=== PATIENT | male | born 1960 | race Caucasian/White ===

== ENCOUNTER 2020-11-14 11:27 | Emergency (ER) | payer MEDICAID, SELFPAY ==
[2020-11-14 11:31] VITALS: BP 115/56; PULSE 51; RESP 17; TEMP 37.4; O2SAT 94; BMI 23.3
[2020-11-14 11:54] VITALS: BP 107/67; PULSE 100; RESP 28; O2SAT 96
--- NOTE | 2020-11-14 12:31 | RAD_ITS ---
STUDY: X-RAY CHEST REASON FOR EXAM: Male, 60 years old. COUGH, FEVER TECHNIQUE: Frontal and lateral views of the chest. COMPARISON: None. FINDINGS: Opacification of the lower right hemithorax. Findings are probably related to small to moderate pleural effusion and atelectasis or infiltrate. Mild atelectasis or infiltrate in the left lung base. Normal size heart. Normal mediastinum and aubrey. Normal visualized pulmonary arteries. Normal visualized aortic arch and descending thoracic aorta. Normal visualized thoracic spine. Normal visualized ribs, clavicles, and shoulders. There is no demonstrated abnormality of the visualized soft tissue structures of the upper abdomen. RAD/Chest 1 View (Portable) IMPRESSION: Prominent atelectasis or infiltrate with small to moderate pleural effusion on the right. Mild atelectasis or infiltrate in the left lung base. Electronically Signed: Raul Troy MD at 13:12 EST , Service support ,
--- NOTE | 2020-11-14 12:31 | EKG12_ITS ---
Test Reason : CP Blood Pressure : / mmHG Vent. Rate : 099 BPM Atrial Rate : 099 BPM P-R Int : 122 ms QRS Dur : 088 ms QT Int : 404 ms P-R-T Axes : 055 015 008 degrees QTc Int : 518 ms Sinus rhythm with frequent Premature ventricular complexes Prolonged QT Abnormal ECG Confirmed by EMMANUEL CASTILLO, ASIF ([id number]), publications editor GLYNN CLARKE ([id number]) on 11/17/2020 10:28:43 AM Referred By: FAUSTINA Confirmed By:ASIF BENITEZ MD
--- NOTE | 2020-11-14 12:33 | ED.DCSUM_ITS ---
History of Present Illness Chief Complaint: Chest Pain Informant: Patient Onset: Days Context: Gradual Onset Narrative: Patient is a 60-year-old male that denies any significant past medical history presenting with worsening chest and back pain as well as shortness of breath and cough. Patient states his symptoms started 5 days ago he was seen at [facility] emergency room last night. At that time he had blood work, CTA and a Covid test performed. Patient was diagnosed with pleural effusion of the right lung and concerns for malignancy as well as possible pneumonia. Patient have a leukocytosis of 15. His Covid test was negative. Patient has had 2 doses of Levaquin, one in the ER yesterday and another today. Patient was previously taking NSAIDs for his pain but they were not working so he stopped taking them. Last dose was about 2 days ago. His sister was concerned which is why he presented back to the emergency room today. Patient states the pain started in his right mid back and radiates up. It is worse with movement and with deep breathing. He has a cough productive of clear/white sputum. He did have a fever yesterday of 38.1 while in the emergency room. He was unaware of fevers prior to that. Pain now radiates to his right chest. Some associated nausea but no vomiting. Past Medical History - Allergies and Home Meds Allergies/Adverse Reactions: Allergies No Known Allergies Allergy (Verified 11/14/20 11:30) Primary Care Physician: Sincere Orosco MD [STAFF PHYSICIAN] - Virginia Galindo MD [STAFF PHYSICIAN] - Past Medical History: None Surgical History: noncontributory Smoking Status: Current every day smoker Review of Systems General: Reports: Fever, Malaise. Denies: Chills, Sweats Eyes: Denies: Visual changes - bilaterally, Diplopia ENT: Denies: Rhinorrhea, Sore throat Cardiovascular: Denies: Chest pain, Palpitations Respiratory: Reports: Dyspnea, Cough, Sputum, Dyspnea on exertion Gastrointestinal: Reports: Nausea. Denies: Abdominal pain, Vomiting, Diarrhea, Melena, Hematochezia Genitourinary: Denies: Dysuria, Hematuria, Frequency Musculoskeletal: Denies: Back pain, Extremity Pain Skin: Denies: Rash, Wounds Neurological: Denies: Headache, Weakness, Numbness Physical Exam Vital Signs/Narrative: Vital Signs Temp Pulse Resp BP Pulse Ox 11/14/20 11:54 100 28 H 107/67 96 11/14/20 11:31 99.3 F H 51 L 17 115/56 L 94 Inital Vital Signs reviewed: Yes General: Well nourished, Well developed, No Acute Distress Head: Normocephalic, Atraumatic Eyes: Perrl, EOMI ENT: No rhinorrhea, Dry mucous membranes Neck: Supple, Nontender Cardiovascular: Regular rhythm, No murmurs, Tachycardia Respiratory: No distress, Chest nontender, Decreased Air Movement - right middle and lower lung . Negative for: Rhonchi, Wheezing, Retractions Abdomen: Soft, Nontender, Nondistended, Normal bowel sounds Back: Nontender, Normal Inspection Extremities: Nontender, No edema Skin: Normal color, No rash Neurological: Alert, Oriented x3, Cranial nerves II-XII grossly intact, Normal Strength, Normal Sensation Psychological: Normal affect, Normal Mood Diagnostic/Tx/Re-eval Chest X-Ray - ED: 1 View, Read by ED Physician, Read by Radiologist, Right Infiltrate, Right Effusion Clinical Impression(s) from Imaging Studies Chest X-Ray 11/14/20 12:31 IMPRESSION: Prominent atelectasis or infiltrate with small to moderate pleural effusion on the right. Mild atelectasis or infiltrate in the left lung base. Electronically Signed: Raul Troy MD at 13:12 EST , Service support , Laboratory Data 11/14/20 11/14/20 11/14/20 13:05 13:05 13:05 WBC 15.2 H RBC 4.28 L Hgb 12.2 L Hct 37.1 L MCV 86.7 MCH 28.5 MCHC 32.9 RDW Std Deviation 39.9 RDW Coeff of Reij 12.5 Plt Count 684 H MPV 8.9 Immature Gran % (Auto) 0.600 Neut % (Auto) 83.3 H Lymph % (Auto) 7.6 L [place] % (Auto) 8.0 Eos % (Auto) 0.1 Baso % (Auto) 0.4 Absolute Neuts (auto) 12.6 H Absolute Lymphs (auto) 1.15 Nucleated RBC % 0 PT 16.4 H INR 1.4 APTT 37.5 H Sodium 136 Potassium 3.4 L Chloride 100 Carbon Dioxide 29.0 Anion Gap 7 BUN 11 Creatinine 0.85 Estim Creat Clear Calc 94.73 Est GFR (MDRD) Af Amer 119 Est GFR (MDRD) Non-Af 98 BUN/Creatinine Ratio 12.9 Glucose 98 Lactic Acid Calcium 8.6 Total Bilirubin 0.60 AST 7 L ALT 9 L Alkaline Phosphatase 100 Troponin I < 0.015 Total Protein 8.1 Albumin 2.4 L Globulin 5.7 H Albumin/Globulin Ratio 0.4 L 11/14/20 13:05 WBC RBC Hgb Hct MCV MCH MCHC RDW Std Deviation RDW Coeff of Reji Plt Count MPV Immature Gran % (Auto) Neut % (Auto) Lymph % (Auto) [place] % (Auto) Eos % (Auto) Baso % (Auto) Absolute Neuts (auto) Absolute Lymphs (auto) Nucleated RBC % PT INR APTT Sodium Potassium Chloride Carbon Dioxide Anion Gap BUN Creatinine Estim Creat Clear Calc Est GFR (MDRD) Af Amer Est GFR (MDRD) Non-Af BUN/Creatinine Ratio Glucose Lactic Acid 0.9 Calcium Total Bilirubin AST ALT Alkaline Phosphatase Troponin I Total Protein Albumin Globulin Albumin/Globulin Ratio - Rhythm Strip Rhythm Strip: Sinus Rhythm Rate: 99 Ectopy: PVC(s) - EKG Initial EKG Interpretation: Sinus Rhythm, - - Normal sinus rhythm rate of 99 Frequent PVCs QTc [address] segments Nonspecific T wave inversion in lead III - Medical Decision Making Patient evaluated for worsening pain in his back which radiates to his chest as well as shortness of breath. Patient was diagnosed with a lung mass as well as likely pneumonia yesterday at an outside ER. Results are reviewed. Patient had a CTA at that time which was also negative for PE. His Covid test was negative. A very thorough evaluation at that time. Patient is afebrile and has normal vital signs not hypoxic. He is hemodynamically stable in the emergency room. He does have a lot of PVCs on telemetry but I do not think this is the cause of his symptoms. Patient is already on Levaquin. I will recheck labs to make sure he does not have any worsening as well as a lactate to make sure does not have signs of sepsis. Severe sepsis or septic shock. Patient is treated with Toradol and Valium for his pain. I suspect his pain is a mixture of muscle spasm versus pleurisy. On reevaluation does have improvement of his symptoms. He is ambulated in the ER and his O2 saturation does not go below 93%. Patient is amenable to going home and to follow-up outpatient. He is given follow-up with pulmonology as well as a local primary care doctor. He is counseled that there is a chance he could get worse and if that does happen he should immediately return to the emergency room. Patient is counseled on signs and symptoms requiring return to the emergency room. Patient verbalizes agreement and understand this plan. Patient discharged home in stable and improved condition. ED Disposition - Plan for ED Patient: Disposition: Home or Assisted Living Diagnosis: Right lower lobe pneumonia, Pleural effusion, right, Mass of right lung Instructions: ED Chest Pain, Noncardiac, ED Pleural Effusion, ED Pneumonia (Adult) Prescriptions: cycloBENZAPRine HCl [Flexeril] 10 mg PO TID PRN #20 tab PRN Reason: Muscle Spasm Transmission Status: Received by [facility]30 Ibuprofen [Motrin] 600 mg PO Q6H PRN PRN #20 tab PRN Reason: Pain 1-10 Or Fever Transmission Status: Received by [facility]30 Referrals: Sincere Orosco MD [STAFF PHYSICIAN] - Virginia Galindo MD [STAFF PHYSICIAN] - Additional Instructions: You have been prescribed a muscle relaxant, Flexeril, as well as an anti- inflammatory, ibuprofen, to help with your pain. Continue take antibiotics. It does appear that you have pneumonia as well as a right lung mass that needs to be followed-up. You been referred to a lung specialist, Dr. Orosco for this. I also gave information for primary care doctor in the area. At this time you do not require hospitalization but please return the emergency room if you develop worsening pain, fevers or difficulty breathing.
[2020-11-14 13:13] VITALS: BP 105/72; PULSE 108; RESP 31; TEMP 37.3; O2SAT 96
[2020-11-14 13:15] VITALS: O2SAT 96
[2020-11-14] MEDS: diazePAM 5 MG Tablet PO (13:15)
[2020-11-14] MEDS: Ketorolac 15 MG/ML Vial IV (13:17)
[2020-11-14 13:23] LABS: Absolute Lymphocyte Count 1.15 X10^3/uL (0.83-4.51); Absolute Neutrophil Count 12.6 X10^3/uL (2.0-7.7); Basophil# 0.06 X10^3/uL; Basophil% 0.4 % (0-1); Eosinophil# 0.01 X10^3/uL; Eosinophils% 0.1 % (0-5); Hematocrit 37.1 % (40-54); Hemoglobin 12.2 g/dL (13.0-16.5); Lymphocyte # 1.15 X10^3/ul (4.0); Lymphocyte % 7.6 % (19-41); Mean Corp Hgb Conc 32.9 g/dL (32-36); Mean Corpuscular Hgb 28.5 pg (27.0-32.0); Mean Corpuscular Volume 86.7 fL (80-94); Mean Platelet Vol. 8.9 fl (6.2-12.0); Monocyte# 1.22 X10^3/uL; NRBC Flagged by Analyzer 0 % (0-5); Neutrophil # 12.63 X10^3/uL (2.7-7.7); Neutrophil % 83.3 % (47-70); Platelet Count 684 K/mm3 (150-450); RBC Distribution Width CV 12.5 % (11.6-14.6); RBC Distribution Width SD 39.9 fl (35.1-43.9); Red Blood Count 4.28 M/mm3 (4.6-6.2); White Blood Count 15.2 K/mm3 (4.4-11.0)
[2020-11-14 13:39] LABS: ALB/GLOB Ratio 0.4 RATIO (0.9-2.4); AST(SGOT) 7 U/L (15-37); Alanine Aminotransfer ALT/SGPT 9 U/L (16-61); Albumin, Serum 2.4 g/dL (3.2-5.0); Alkaline Phosphatase 100 U/L (45-117); Anion Gap 7 (5-15); BUN 11 mg/dL (7-18); BUN/Creat Ratio 12.9 RATIO (10-20); Calcium,Total 8.6 mg/dL (8.5-10.1); Chloride 100 mmol/L (98-107); Creatinine, Serum 0.85 mg/dL (0.70-1.30); EST Glomerular Filtration Rate 98 mL/min (>60); Est Glom Filt Rate - Afr Amer 119 mL/min (>60); Estimated Creatinine Clearance 94.73 ml/min; Globulin 5.7 g/dL (2.2-4.2); Glucose 98 mg/dL (74-106); Potassium 3.4 mmol/L (3.5-5.1); Protein, Total 8.1 g/dL (6.4-8.2); Sodium Level 136 mmol/L (136-145)
[2020-11-14 13:44] LABS: International Normalized Ratio 1.4; Prothrombin Time (Protime)PT. 16.4 SECONDS (11.7-14.9)
[2020-11-14 13:45] LABS: Partial Thromboplast Time 37.5 Seconds (24.1-36.2)
[2020-11-14 13:46] LABS: Lactic Acid 0.9 mmol/L (0.4-1.9)
[2020-11-14 14:00] VITALS: BP 100/75; PULSE 98; RESP 17; TEMP 37.1; O2SAT 94
[2020-11-14 14:43] VITALS: BP 105/59; PULSE 90; RESP 26; O2SAT 97
== END 2020-11-14 14:46 | disposition home or self-care (01) ==
PROVIDERS: Emergency Provider Emergency Medicine
DX: J18.9 Pneumonia, unspecified organism (principal); J90 Pleural effusion, not elsewhere classified; R91.8 Other nonspecific abnormal finding of lung field; F17.200 Nicotine dependence, unspecified, uncomplicated
CPT/HCPCS: 36415; 71045; 80053; 83605; 84484; 85025; 85610; 85730; 87040; 93005; 96361; 96374; 99285; J7040; A4216